=== PATIENT | male | born 1950 | race Two or more races ===

== ENCOUNTER → 2023-04-05 | Outpatient (CLI) | payer MEDICARE, BC ==
[~2023-04-05] VITALS: Ht 182.9 cm; Wt 88.5 kg
[~2023-04-05] MED LIST: ADENOSINE 74 MG in GIVE UN-DILUTED 0 ML IV ONE
== END | disposition home or self-care (01) ==
LOC: XYW 08:56
PROVIDERS: ATTEND Internal Medicine
DX: I95.1 Orthostatic hypotension (principal); I34.1 Nonrheumatic mitral (valve) prolapse
CPT/HCPCS: 78452; 93017; A9500; J0153

== ENCOUNTER 2023-04-25 07:54 | Day surgery (SDC) | payer MEDICARE, BC ==
[2023-04-25] VITALS (9 sets, daily range): BP systolic 118–145; BP diastolic 71–85; PULSE 53–68; RESP 11–19; TEMP 98.2; O2SAT 94–97
[~2023-04-25] VITALS: Ht 182.9 cm; Wt 88.0 kg
[~2023-04-25 07:54] MED LIST changes: -ADENOSINE 74 MG in GIVE UN-DILUTED 0 ML IV ONE; +AMIN1TAB5 PO; +AMIO200T33 PO; +ASPI-543 PO; +LOSA50TA12 PO; +MULT-1018 PO; +POM PO; +ZOLP10TA PO
[2023-04-25] MEDS ORDERED: ANGIOMAX 250 MG VIAL IV ONE (10:30)
[2023-04-25] MEDS ORDERED: fentaNYL CITRATE 100 MCG/2 ML VL ONE (10:30)
[2023-04-25] MEDS ORDERED: HEPARIN SODIUM (PORCINE) 5000 UNITS/ML 1ML VIAL ONE (10:30)
[2023-04-25] MEDS ORDERED: VERAPAMIL 2.5MG/ML INJ 2ML VIAL IV ONE (10:30)
[2023-04-25] MEDS ORDERED: LIDOCAINE 2%HCL (LOCAL ANESTH.) INJ 20ML MDV ONE (10:31)
[2023-04-25] MEDS ORDERED: SODIUM CHL 0.9% 50 ML ONE (10:31)
[2023-04-25] MEDS ORDERED: MIDAZOLAM HCL 2MG/2ML 2ml VIAL (1mg/ml) ONE (10:31)
[2023-04-25] MEDS ORDERED: IODIXANOL 320MG/ML 100ML BTL IV ONE ×2 (10:31→11:05)
== END 2023-04-25 14:02 | disposition home or self-care (01) ==
LOC: CATH 07:54
PROVIDERS: ATTEND Internal Medicine
DX: R07.89 Other chest pain (principal); I47.1 Supraventricular tachycardia; F43.9 Reaction to severe stress, unspecified; F41.9 Anxiety disorder, unspecified; I10 Essential (primary) hypertension; Z79.899 Other long term (current) drug therapy
CPT/HCPCS: 93458; C1725; C1769; C1894; J0583; J1644; J2250; J3010; Q9967; 99152; 99153

== ENCOUNTER 2023-06-03 16:29 | Emergency (ER) | payer MEDICARE, BC ==
[~2023-06-03] VITALS: Ht 424.2 cm; Wt 88.0 kg
[2023-06-03 17:50] LABS: Urine Bacteria FEW /hpf (None Seen); Urine Blood Negative /uL (Negative); Urine Clarity HAZY (Clear); Urine Color Yellow (Yellow); Urine Protein, UAD Negative (Negative); Urine Specific Gravity 1.018 (1.001-1.035); Urine Urobilinogen Normal (Negative); Urine WBC 2 /hpf (0 - 3)
[2023-06-03 18:44] LABS: Basophils # (auto) 0 10 ^3/uL (0-0.2); Basophils % (auto) 0.5 % (0.0-2.0); Eosinophils # (auto) 0.1 10 ^3/uL (0-0.8); Hematocrit 46.2 % (41.0-53.0); Hemoglobin 15.9 g/dL (13.5-17.5); Lymphocytes # (auto) 0.4 10 ^3/uL (0.4-5.4); Lymphocytes % (auto) 5.9 % (10.0-50.0); Mean Corpuscular Hemoglobin 30.8 pg (28.0-32.0); Mean Corpuscular Hgb Conc. 34.3 g/dL (32.0-36.0); Mean Corpuscular Volume 89.8 fL (80.0-100.0); Monocytes # (auto) 0.9 10 ^3/uL (0-1.3); Monocytes % (auto) 12.5 % (0.0-12.0); Neutrophils # (auto) 6.1 10 ^3/uL (1.6-8.6); Neutrophils % (auto) 80.1 % (37.0-80.0); Nucleated Red Blood Cells % 0.1 %; Red Blood Cells 5.15 10^6/uL (4.5-5.90); Red Cell Distribution Width 13.6 % (11.8-14.3); White Blood Cell 7.6 10^3/uL (4.4-10.8)
[2023-06-03 18:56] LABS: Alanine Aminotransferase 17 U/L (7-40); Albumin 4.3 g/dL (3.2-4.8); Alkaline Phosphatase 93 U/L (46-116); Anion Gap 3 (5-15); Aspartate Aminotransferase 11 U/L (13-40); BUN/Creatinine Ratio 19.1 (10.0-20.0); Blood Urea Nitrogen 18 mg/dL (9-23); Calcium 9.5 mg/dL (8.7-10.4); Carbon Dioxide 29 mmol/L (20-30); Chloride 104 mmol/L (98-107); Glucose 97 mg/dL (74-106); Potassium 4.8 mmol/L (3.5-5.1); Sodium 136 mmol/L (136-145)
[2023-06-03 18:57] LABS: Bilirubin, Total 0.9 mg/dL (0.2-1.0); Total Protein 6.7 g/dL (5.7-8.2)
[2023-06-03] MEDS ORDERED: LORazepam 2MG/ML-1ML VIAL IM ONE (22:00)
[2023-06-03 22:18] VITALS: TEMP 97.6
[2023-06-03 22:41] VITALS: BP 128/78; PULSE 51; RESP 16; O2SAT 98
== END 2023-06-03 22:43 | disposition home or self-care (01) ==
LOC: ER 16:29
DX: I10 Essential (primary) hypertension (principal); R51.9 Headache, unspecified; F41.9 Anxiety disorder, unspecified; R00.1 Bradycardia, unspecified; Z79.82 Long term (current) use of aspirin; Z79.899 Other long term (current) drug therapy
CPT/HCPCS: 36415; 70450; 80053; 81001; 84484; 85025; 93005; 96372; 99285; J2060

== ENCOUNTER 2024-01-16 17:17 | Inpatient (IN) | payer BC, MEDICARE ==
[~2024-01-16] VITALS: Ht 185.4 cm; Wt 82.2 kg
[2024-01-16 18:10] VITALS: PULSE 82; RESP 12; O2SAT 95
[2024-01-16 18:34] LABS: Basophils # (auto) 0 10 ^3/uL (0-0.2); Basophils % (auto) 0.5 % (0.0-2.0); Eosinophils # (auto) 0.2 10 ^3/uL (0-0.8); Eosinophils % (auto) 2.7 % (0.0-7.0); Hematocrit 44.6 % (41.0-53.0); Hemoglobin 14.5 g/dL (13.5-17.5); Lymphocytes # (auto) 0.6 10 ^3/uL (0.4-5.4); Lymphocytes % (auto) 9.1 % (10.0-50.0); Mean Corpuscular Hgb Conc. 32.6 g/dL (32.0-36.0); Mean Corpuscular Volume 88.9 fL (80.0-100.0); Monocytes # (auto) 0.7 10 ^3/uL (0-1.3); Monocytes % (auto) 11.1 % (0.0-12.0); Neutrophils # (auto) 4.7 10 ^3/uL (1.6-8.6); Neutrophils % (auto) 76.6 % (37.0-80.0); Nucleated Red Blood Cells % 0.2 %; Red Blood Cells 5.01 10^6/uL (4.5-5.90); Red Cell Distribution Width 13.8 % (11.8-14.3); White Blood Cell 6.1 10^3/uL (4.4-10.8)
[2024-01-16 19:06] LABS: Acetaminophen < 2.0 UG/ML (10.0-20.0); Alanine Aminotransferase 12 U/L (7-40); Albumin 3.3 g/dL (3.2-4.8); Alkaline Phosphatase 100 U/L (46-116); Anion Gap 6 (5-15); Aspartate Aminotransferase 16 U/L (13-40); BUN/Creatinine Ratio 22.2 (10.0-20.0); Blood Alcohol < 3.0 mg/dL (<10); Blood Urea Nitrogen 16 mg/dL (9-23); Calcium 9.5 mg/dL (8.5-10.1); Carbon Dioxide 25 mmol/L (20-30); Chloride 109 mmol/L (98-107); Glucose 96 mg/dL (74-106); Potassium 4.1 mmol/L (3.5-5.1); Sodium 140 mmol/L (136-145)
[2024-01-16 19:07] LABS: Total Protein 6.5 g/dL (5.7-8.2)
[2024-01-16 19:17] LABS: Salicylate < 3.0 mg/dL (2.8-20.0)
[2024-01-16 19:30] VITALS: PULSE 77; RESP 21; O2SAT 92
[2024-01-16] MEDS ORDERED: DOCUSATE SOD 100 MG CAP PO PRN (20:30)
[2024-01-16] MEDS ORDERED: ACETAMINOPHEN 325 MG TAB PO PRN (20:30)
[2024-01-16] MEDS: METOPROLOL TARTRATE 25 MG TAB PO SCH (22:00)
[2024-01-16] MEDS: SODIUM CHLOR 0.9% PF (SALINE LOCK) 10ML VIAL/SYR IV SCH (22:00)
[2024-01-16] MEDS ORDERED: MORPHINE SULFATE INJ 2 MG/ml SYRG IV PRN (23:00)
[2024-01-16] MEDS ORDERED: NITROGLYCERIN 0.4 MG SL TAB SL PRN (23:00)
[2024-01-16 23:19] LABS: Urine Bacteria None Seen /hpf (None Seen)
[2024-01-16 23:24] LABS: Urine Blood Negative /uL (Negative); Urine Clarity Clear (Clear); Urine Color Light-Yellow (Yellow); Urine Mucus FEW (None Seen); Urine Protein, UAD Negative (Negative); Urine Specific Gravity 1.015 (1.001-1.035); Urine Urobilinogen Normal (Negative); Urine WBC 4 /hpf (0 - 3); Urine pH 6.5 (5.0-9.0)
[2024-01-16 23:37] LABS: Amphetamine Screen, Urine Neg (NEGATIVE); Barbiturate Scree,Urine Neg (NEGATIVE); Benzodiazephine Screen, Urine Pos (NEGATIVE); Cocaine Screen, Urine Neg (NEGATIVE)
[2024-01-16 23:38] LABS: Cannabinoid Screen, Urine Neg (NEGATIVE); Opiate Scree,Urine Neg (NEGATIVE); Phencyclidine Screen, Urine Neg (NEGATIVE)
[2024-01-17] MEDS: HALOPERIDOL LACTATE 5 MG/ML INJ VIAL IM ONE (01:32)
[2024-01-17 05:22] LABS: Basophils # (auto) 0 10 ^3/uL (0-0.2); Basophils % (auto) 0.7 % (0.0-2.0); Eosinophils # (auto) 0.2 10 ^3/uL (0-0.8); Eosinophils % (auto) 2.6 % (0.0-7.0); Hematocrit 43.6 % (41.0-53.0); Hemoglobin 14.6 g/dL (13.5-17.5); Lymphocytes # (auto) 0.5 10 ^3/uL (0.4-5.4); Lymphocytes % (auto) 7.5 % (10.0-50.0); Mean Corpuscular Hemoglobin 29.4 pg (28.0-32.0); Mean Corpuscular Hgb Conc. 33.5 g/dL (32.0-36.0); Mean Corpuscular Volume 87.9 fL (80.0-100.0); Monocytes # (auto) 0.8 10 ^3/uL (0-1.3); Monocytes % (auto) 13.3 % (0.0-12.0); Neutrophils # (auto) 4.8 10 ^3/uL (1.6-8.6); Neutrophils % (auto) 75.9 % (37.0-80.0); Nucleated Red Blood Cells % 0.1 %; Red Blood Cells 4.97 10^6/uL (4.5-5.90); Red Cell Distribution Width 13.8 % (11.8-14.3); White Blood Cell 6.3 10^3/uL (4.4-10.8)
[2024-01-17 05:40] LABS: Alanine Aminotransferase 11 U/L (7-40); Alkaline Phosphatase 98 U/L (46-116); Calcium 9.7 mg/dL (8.7-10.4); Carbon Dioxide 28 mmol/L (20-30); Chloride 107 mmol/L (98-107); Glucose 81 mg/dL (74-106); Potassium 3.6 mmol/L (3.5-5.1)
[2024-01-17 05:41] LABS: Albumin 3.8 g/dL (3.2-4.8); Anion Gap 7 (5-15); Aspartate Aminotransferase 17 U/L (13-40); BUN/Creatinine Ratio 22.2 (10.0-20.0); Bilirubin, Total 1.3 mg/dL (0.2-1.0); Blood Urea Nitrogen 16 mg/dL (9-23); Sodium 142 mmol/L (136-145); Total Protein 6.5 g/dL (5.7-8.2)
[2024-01-17 08:00] VITALS: PULSE 78; RESP 14; O2SAT 98
[2024-01-17] MEDS: MULTIPLE VITAMIN TAB PO SCH (10:00)
[2024-01-17] MEDS: LOSARTAN POTASSIUM 25 MG TAB PO SCH (10:00)
[2024-01-17] MEDS: ASPirin 81 mg TAB PO SCH (10:00)
[2024-01-17] MEDS: SODIUM CHLORIDE 0.9% 1,000 ML IV SCH (14:30)
[2024-01-17 17:49] VITALS: BP 140/86; PULSE 77; RESP 16; TEMP 97.6; O2SAT 95
[2024-01-17 20:00] VITALS: PULSE 72
[2024-01-17] MEDS: AMIODARONE HCL 200 MG TAB PO SCH (21:27)
[2024-01-18] VITALS (9 sets, daily range): BP systolic 107–142; BP diastolic 66–89; PULSE 63–82; RESP 18–24; TEMP 97.4–98.1; O2SAT 93–98
[2024-01-18] MEDS: HYDROcodone-ACET 5/325MG TAB PO PRN (01:03)
[2024-01-18 11:57] LABS: COVID19 ANTIGEN SOFIA FIA NEGATIVE (NEGATIVE)
[2024-01-18] MEDS: ONDANSETRON HCL 4 MG/2 ML VIAL IV PRN (12:45)
[2024-01-19 00:44] VITALS: BP 128/81; PULSE 55; RESP 20; TEMP 97.8; O2SAT 96
[2024-01-19 04:45] VITALS: BP 152/89; PULSE 94; RESP 24; TEMP 97.8; O2SAT 94
[2024-01-19 08:00] VITALS: PULSE 61; PULSE 64; RESP 18
[2024-01-19 11:18] VITALS: BP 133/82; PULSE 64; RESP 18; TEMP 97.9; O2SAT 96
[2024-01-19 12:36] VITALS: BP 162/77; PULSE 64; RESP 18; TEMP 97.7; O2SAT 96
== END 2024-01-19 15:29 | DRG 917 ==
LOC: EDBD 17:17 → ER 17:17 → TELE 22:56 → TELE-WESTW 01-17 17:18
PROVIDERS: ADMIT Nurse Practitioner Family; ATTEND Family Medicine
DX: T42.4X2A Poisoning by benzodiazepines, intentional self-harm, initial encounter (principal); G93.41 Metabolic encephalopathy; F32.2 Major depressive disorder, single episode, severe without psychotic features; R45.851 Suicidal ideations; F41.9 Anxiety disorder, unspecified; I10 Essential (primary) hypertension; G89.29 Other chronic pain; Z91.51 Personal history of suicidal behavior; Z85.828 Personal history of other malignant neoplasm of skin; Y92.89 Other specified places as the place of occurrence of the external cause
CPT/HCPCS: 36415; 70450; 80053; 80307; 80320; 80329; 81001; 85025; 87426; G0378; J2405